=== PATIENT | female | born 1985 | race African-American/Black ===

== ENCOUNTER 2019-02-02 04:20 | Emergency (ER) | payer MEDICAID ==
[~2019-02-02] VITALS: Ht 165.1 cm; Wt 72.6 kg
[2019-02-02] MEDS ORDERED: LORAZEPAM INJ 2 MG/ML VIAL ONE (04:42)
--- NOTE | 2019-02-02 04:50 | NUR ---
BIBRA. TO ER BED 10. AAOX4. HYPERVENTILATION, RAPID BREATHING. ANXIOUS. C/O ANXIETY ATTACK AND NUMBNESS TO FACE AND BOTH HANDS. PT WAS TAUGHT BREATHING EXERCISES AT BEDSIDE TO HELP ALLEVIATE HYPERVENTILATION AND ANXIETY, PT IS COOPERATIVE TO COMPLY. PT DENIES CP. DENIES NVD. MD AT BEDSIDE FOR EVAL. ORDERS RECEIVED , NOTED AND CARRIED OUT.
[2019-02-02] MEDS ORDERED: LORAZEPAM INJ 2 MG/ML VIAL IM ONE (05:00)
--- NOTE | 2019-02-02 06:02 | NUR ---
PT IS IN BED SLEEPING. NAD NOTED
--- NOTE | 2019-02-02 06:43 | NUR ---
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 SPOKE WITH TED AND SHE WILL BE PICKING UP PT AT 8AM
--- NOTE | 2019-02-02 07:50 | NUR ---
PATIENTAWAKE ALERT NON DISTRESS AWAITNG FOR HER SIDTER TO PICK HER UP ,NOTED AMBULATORY SHES IN THE PHONE PRESCRIPTION
--- NOTE | 2019-02-02 08:29 | NUR ---
Called Randal [phone] agrees to pick her up
--- NOTE | 2019-02-02 09:25 | NUR ---
patient awake alert noted able to ambulated she refused to wait in the waiting area ,put her in a wheel chair ,spoke to Randal cramer 2 stated ETA 10 minutes
[2019-02-02 09:43] VITALS: BP 89/123
--- NOTE | 2019-02-02 09:43 | NUR ---
Patient discharged to home in stable condition. Written and verbal after care instructions given. Patient verbalizes understanding of instruction.
== END 2019-02-02 09:43 | disposition home or self-care (01) ==
LOC: ER 04:25
DX: F41.9 Anxiety disorder, unspecified (principal); F32.9 Major depressive disorder, single episode, unspecified; R06.4 Hyperventilation; Z88.8 Allergy status to other drugs, medicaments and biological substances
CPT/HCPCS: 96372; 99284; J2060

== ENCOUNTER 2019-03-01 18:51 | Emergency (ER) | payer MEDICAID ==
[~2019-03-01] VITALS: Ht 165.1 cm; Wt 72.6 kg
[2019-03-01 19:01] VITALS: BP 132/94
[2019-03-01] MEDS ORDERED: LORAZEPAM 1 MG TABLET PO ONE (19:30)
[2019-03-01] MEDS ORDERED: ONDANSETRON HCL 4 MG/5 ML SOLUTION PO ONE (19:30)
[2019-03-01] MEDS ORDERED: KETOROLAC TROMETHAMINE INJ 60 MG/2 ML VIAL IM ONE (19:30)
[2019-03-01] MEDS ORDERED: CYCLOBENZAPRINE 10 MG TABLET PO ONE (19:30)
[2019-03-01] MEDS ORDERED: KETOROLAC TROMETHAMINE INJ 30 MG/ML VIAL ONE (19:34)
[2019-03-01] MEDS ORDERED: LORAZEPAM 1 MG TABLET ONE (19:35)
[2019-03-01] MEDS ORDERED: CYCLOBENZAPRINE 10 MG TABLET ONE (19:35)
[2019-03-01] MEDS ORDERED: ONDANSETRON 4 MG TAB.RAPDIS ONE (19:35)
== END 2019-03-01 21:03 | disposition home or self-care (01) ==
LOC: ER 18:57
DX: F41.9 Anxiety disorder, unspecified (principal); M54.5 Low back pain; F32.9 Major depressive disorder, single episode, unspecified; Z88.8 Allergy status to other drugs, medicaments and biological substances
CPT/HCPCS: 72110; 96372; 99284; J1885; Q0162

== ENCOUNTER 2019-04-01 18:15 | Emergency (ER) | payer MEDICAID ==
[~2019-04-01] VITALS: Ht 165.1 cm; Wt 71.2 kg
[2019-04-01 18:47] VITALS: BP 131/79
--- NOTE | 2019-04-01 19:22 | NUR ---
CALLED PT FOR BED ASSIGNMENT, NO ANSWER.
--- NOTE | 2019-04-01 19:30 | NUR ---
CALLED PT FOR BED ASSIGNMENT, NO ANSWER.
--- NOTE | 2019-04-01 19:34 | NUR ---
CALLED PT FOR BED ASSIGNMENT, NO ANSWER.
== END 2019-04-01 20:39 | disposition left against medical advice (07) ==
LOC: ER 18:17
DX: Z53.21 Procedure and treatment not carried out due to patient leaving prior to being seen by health care provider (principal); R05 Cough; R09.81 Nasal congestion; J02.9 Acute pharyngitis, unspecified; F32.9 Major depressive disorder, single episode, unspecified; F41.9 Anxiety disorder, unspecified

== ENCOUNTER 2019-04-07 03:05 | Emergency (ER) | payer MEDICAID ==
[~2019-04-07] VITALS: Ht 165.1 cm; Wt 70.3 kg
--- NOTE | 2019-04-07 03:53 | NUR ---
PT PRESENTED TO THE ER WITH A C/O PRODUCTIVE COUGH, CONGESTION, DIZZINESS, NAUSEA AND VOMITTING X1 @0200 TODAY. PT STATED THAT THIS STARTED 4 DAYS AGO AND HAS BEEN PROGRESSIVELY GETTING WORSE. PT STATED THAT THE COUGH WOKE HER UP THIS MORNING AT 0200 AND IT WAS SO SEVERE THAT SHE THREW UP.
[2019-04-07] MEDS ORDERED: ONDANSETRON 4 MG TAB.RAPDIS SL ONE (04:00)
[2019-04-07] MEDS ORDERED: ACETAMINOPHEN ES 500 MG TABLET PO ONE (04:00)
[2019-04-07] MEDS ORDERED: GUAIFENESIN/D-METHORPHAN HB 5 ML UDC ONE (04:00)
[2019-04-07] MEDS ORDERED: ACETAMINOPHEN ES 500 MG TABLET ONE (04:00)
[2019-04-07] MEDS ORDERED: GUAIFENESIN/D-METHORPHAN HB 5 ML UDC PO ONE (04:00)
[2019-04-07] MEDS ORDERED: ONDANSETRON 4 MG TAB.RAPDIS ONE (04:01)
--- NOTE | 2019-04-07 04:18 | NUR ---
CXR DONE AT THE BEDSIDE.
--- NOTE | 2019-04-07 04:19 | NUR ---
INFLUENZA SWAB DONE AND SENT TO LAB.
--- NOTE | 2019-04-07 04:49 | NUR ---
PT STATED THAT HER HEADACHE WAS STILL 8/10 WITH NO RELIEF FROM TYLENOL. PT STATED THAT HER NAUSEA WAS GONE AND SHE STOPPED COUGHING. PT REC'D 2 WARM BLANKETS AND A CUP OF WATER.
--- NOTE | 2019-04-07 05:46 | NUR ---
Patient discharged to home in stable condition. Written and verbal after care instructions given. Patient verbalizes understanding of instruction AND RX. PT REC'D AN EXCUSE FOR WORK. PT AMBULATED OUT WITH A STEADY GAIT. VSS.
[2019-04-07 05:48] VITALS: BP 133/81
== END 2019-04-07 05:48 | disposition home or self-care (01) ==
LOC: ER 03:08
DX: J20.8 Acute bronchitis due to other specified organisms (principal); J45.909 Unspecified asthma, uncomplicated; F32.9 Major depressive disorder, single episode, unspecified; F41.9 Anxiety disorder, unspecified; Z88.8 Allergy status to other drugs, medicaments and biological substances
CPT/HCPCS: 71045; 84703; 87804 ×2; 99284; Q0162

== ENCOUNTER 2019-04-07 17:53 | Emergency (ER) | payer MEDICAID ==
[~2019-04-07] VITALS: Ht 165.1 cm; Wt 70.3 kg
--- NOTE | 2019-04-07 18:08 | NUR ---
PT BIB SELF C/O HEADACHE,NAUSEA AFTER TAKING PRESCRIBED MEDS, PT IS AAOX4, NOT IN RESPIRATORY DISTRESS, V/S STABLE, KEPT RESTED AND COMFORTABLE, WILL CONTINUE TO MONITOR.
--- NOTE | 2019-04-07 19:06 | NUR ---
GEOVANNA MARTIN STUDENT LIFE ADVISOR AT BEDSIDE FOR EVAL.
[2019-04-07 19:28] LABS: BASOPHILS # (AUTO) 0.1 /CMM (0.0-0.2); BASOPHILS % (AUTO) 1.2 % (0.0-2.0); EOSINOPHILS % (AUTO) 2.3 % (0.0-6.0); HEMATOCRIT 30 % (33-45); HEMOGLOBIN 9.1 g/dL (11.5-14.8); LYMPHOCYTES # (AUTO) 2.2 /CMM (0.8-4.8); LYMPHOCYTES % (AUTO) 30.8 % (20.0-44.0); MEAN CORPUSCULAR HGB CONC 31 g/dl (31.0-36.0); MEAN CORPUSCULAR VOLUME 59 fL (82-100); MONOCYTES # (AUTO) 0.4 /CMM (0.1-1.30); MONOCYTES % (AUTO) 5.7 % (2.0-12.0); NEUTROPHILS # (AUTO) 4.3 /CMM (1.8-8.9); PLATELET COUNT (AUTO) 267 /CMM (150-450); RED BLOOD CELL COUNT(AUTO) 5.05 MIL/uL (4.0-5.2); WHITE BLOOD COUNT (AUTO) 7.1 K/uL (4.3-11.0)
[2019-04-07] MEDS ORDERED: ONDANSETRON HCL/PF 4 MG/2 ML VIAL ONE (19:29)
[2019-04-07] MEDS ORDERED: HYDROCODONE BIT/HOMATROPINE 5 ML UDC ONE ×2 (19:29→19:58)
[2019-04-07] MEDS ORDERED: HYDROCODONE BIT/HOMATROPINE 5 ML UDC PO ONE ×2 (19:30→20:00)
[2019-04-07] MEDS ORDERED: ONDANSETRON HCL/PF 4 MG/2 ML VIAL IVP ONE (19:30)
[2019-04-07] MEDS ORDERED: IV NS 0.9% 1,000 ML BAG IV ONE (19:30)
[2019-04-07 19:47] LABS: ALBUMIN 4.1 g/dL (3.4-5.0); BILIRUBIN,TOTAL 0.2 mg/dL (0.2-1.0); CALCIUM, SERUM 9.2 mg/dL (8.5-10.1); CREATININE 0.8 mg/dL (0.6-1.3); POTASSIUM 4.1 mmol/L (3.5-5.1); TOTAL PROTEIN, SERUM 8.5 g/dL (6.4-8.2)
--- NOTE | 2019-04-07 20:31 | NUR ---
GEOVANNA AT BEDSIDE FOR RE-EVALUATION
--- NOTE | 2019-04-07 20:44 | NUR ---
IV removed. Catheter intact and site benign. Pressure and 4x4 applied to site. No bleeding noted. Patient discharged to home in stable condition. Written and verbal after care instructions given. Patient verbalizes understanding of instruction. Patient is ambulatory with a steady gait.
[2019-04-07 21:45] VITALS: BP 122/76
== END 2019-04-07 21:45 | disposition home or self-care (01) ==
LOC: ER 17:54
DX: F41.9 Anxiety disorder, unspecified (principal); J40 Bronchitis, not specified as acute or chronic; R11.2 Nausea with vomiting, unspecified; D64.9 Anemia, unspecified; N80.9 Endometriosis, unspecified; F32.9 Major depressive disorder, single episode, unspecified; Z88.8 Allergy status to other drugs, medicaments and biological substances
CPT/HCPCS: 36415; 80048; 80076; 85025; 96361; 96374; 99284; J2405; J7030

== ENCOUNTER 2019-04-10 07:47 | Emergency (ER) | payer MEDICAID ==
[~2019-04-10] VITALS: Ht 165.1 cm; Wt 70.3 kg
--- NOTE | 2019-04-10 07:55 | NUR ---
CAME IN FOR GENERALIZED WEAKNESS, HEADACHE, NAUSEA, COUGH FOR LESS THAN A WEEK, PAT HERE 2DAYS AGO FOR SAME REASON, ON PO ATB Z-PACK. AFEBRILE. TO ER BED 10, HOOKED TOMONITOR, CHANGED TO HOSPITAL GOWN, WARM BLANKET PROVIDED, DR ORR AT BEDSIDE
[2019-04-10] MEDS ORDERED: ONDANSETRON HCL/PF 4 MG/2 ML VIAL ONE (08:14)
[2019-04-10] MEDS ORDERED: diphenhydrAMINE HCL 50 MG/ML VIAL ONE (08:14)
[2019-04-10 08:18] LABS: BASOPHILS # (AUTO) 0.1 /CMM (0.0-0.2); BASOPHILS % (AUTO) 1.1 % (0.0-2.0); EOSINOPHILS % (AUTO) 4.6 % (0.0-6.0); HEMATOCRIT 26 % (33-45); LYMPHOCYTES # (AUTO) 2.1 /CMM (0.8-4.8); LYMPHOCYTES % (AUTO) 38.5 % (20.0-44.0); MEAN CORPUSCULAR HGB CONC 31 g/dl (31.0-36.0); MEAN CORPUSCULAR VOLUME 59 fL (82-100); MONOCYTES # (AUTO) 0.4 /CMM (0.1-1.30); MONOCYTES % (AUTO) 6.9 % (2.0-12.0); NEUTROPHILS # (AUTO) 2.6 /CMM (1.8-8.9); NEUTROPHILS % (AUTO) 48.9 % (43.0-81.0); PLATELET COUNT (AUTO) 199 /CMM (150-450); WHITE BLOOD COUNT (AUTO) 5.4 K/uL (4.3-11.0)
[2019-04-10] MEDS ORDERED: diphenhydrAMINE HCL 50 MG/ML VIAL IV ONE (08:30)
[2019-04-10] MEDS ORDERED: ONDANSETRON HCL/PF - ER 4 MG/2 ML VIAL IV ONE (08:30)
[2019-04-10] MEDS ORDERED: IV NS 0.9% 1,000 ML BAG IV ONE (08:30)
[2019-04-10 08:34] LABS: ALBUMIN 3.8 g/dL (3.4-5.0); BILIRUBIN,TOTAL 0.2 mg/dL (0.2-1.0); CREATININE 0.8 mg/dL (0.6-1.3); POTASSIUM 3.7 mmol/L (3.5-5.1); TOTAL PROTEIN, SERUM 7.6 g/dL (6.4-8.2)
[2019-04-10 09:12] LABS: EOSINOPHILS % (MANUAL) 2 % (0-4); LYMPHOCYTES % (MANUAL) 36 % (16-48); MONOCYTES % (MANUAL) 8 % (0-11.0); NEUTROPHILS % (MANUAL) 54 (42-76)
--- NOTE | 2019-04-10 10:05 | NUR ---
IV removed. Catheter intact and site benign. Pressure and 4x4 applied to site. No bleeding noted.Patient discharged to home in stable condition. Written and verbal after care instructions given. Patient verbalizes understanding of instruction.
[2019-04-10 10:06] VITALS: BP 126/79
== END 2019-04-10 10:06 | disposition home or self-care (01) ==
LOC: ER 07:56
DX: D64.9 Anemia, unspecified (principal); R53.1 Weakness; R42 Dizziness and giddiness; J45.909 Unspecified asthma, uncomplicated; F32.9 Major depressive disorder, single episode, unspecified; F41.9 Anxiety disorder, unspecified; Z88.8 Allergy status to other drugs, medicaments and biological substances
CPT/HCPCS: 36415; 70450; 80048; 80076; 85025; 96361; 96374; 96375; 99284; J1200; J2405; J7030

== ENCOUNTER 2019-04-23 00:22 | Emergency (ER) | payer MEDICAID ==
[~2019-04-23] VITALS: Ht 165.1 cm; Wt 70.3 kg
--- NOTE | 2019-04-23 00:34 | NUR ---
PT [place]. AAOX4. C/O FEELING ANXIOUS. PT STATES SHE RAN OUT OF HER MEDICATION. VSS. NO ACUTE DISTRESS NOTED. PLACED ON MONITOR AND PULSE OX.
[2019-04-23] MEDS ORDERED: LORAZEPAM INJ 2 MG/ML VIAL ONE (01:22)
[2019-04-23] MEDS ORDERED: LORAZEPAM INJ 2 MG/ML VIAL IV ONE (01:30)
--- NOTE | 2019-04-23 01:46 | NUR ---
Patient is resting comfortably in bed. Easily aroused. VSS.
[2019-04-23] MEDS ORDERED: ONDANSETRON HCL/PF 4 MG/2 ML VIAL ONE (02:16)
[2019-04-23] MEDS ORDERED: MECLIZINE HCL 25 MG TABLET ONE (02:16)
[2019-04-23] MEDS ORDERED: MECLIZINE HCL 25 MG TABLET PO ONE (02:30)
[2019-04-23] MEDS ORDERED: IV NS 0.9% 1,000 ML BAG IV ONE (02:30)
[2019-04-23] MEDS ORDERED: ONDANSETRON HCL/PF - ER 4 MG/2 ML VIAL IV ONE (02:30)
[2019-04-23 02:35] LABS: BASOPHILS # (AUTO) 0.2 /CMM (0.0-0.2); BASOPHILS % (AUTO) 2.8 % (0.0-2.0); EOSINOPHILS % (AUTO) 2.6 % (0.0-6.0); HEMATOCRIT 29 % (33-45); HEMOGLOBIN 9.1 g/dL (11.5-14.8); LYMPHOCYTES # (AUTO) 0.4 /CMM (0.8-4.8); LYMPHOCYTES % (AUTO) 7.2 % (20.0-44.0); MEAN CORPUSCULAR HGB CONC 32 g/dl (31.0-36.0); MEAN CORPUSCULAR VOLUME 63 fL (82-100); MONOCYTES # (AUTO) 0.4 /CMM (0.1-1.30); MONOCYTES % (AUTO) 6.2 % (2.0-12.0); NEUTROPHILS # (AUTO) 4.9 /CMM (1.8-8.9); NEUTROPHILS % (AUTO) 81.2 % (43.0-81.0); PLATELET COUNT (AUTO) 400 /CMM (150-450); RED BLOOD CELL COUNT(AUTO) 4.59 MIL/uL (4.0-5.2)
[2019-04-23 02:39] LABS: CALCIUM, SERUM 8.7 mg/dL (8.5-10.1); CREATININE 0.8 mg/dL (0.6-1.3); POTASSIUM 3.7 mmol/L (3.5-5.1)
[2019-04-23 02:45] LABS: ALBUMIN 3.9 g/dL (3.4-5.0); BILIRUBIN,DIRECT 0.1 mg/dL (0.0-0.2); BILIRUBIN,TOTAL 0.2 mg/dL (0.2-1.0); TOTAL PROTEIN, SERUM 7.4 g/dL (6.4-8.2)
--- NOTE | 2019-04-23 03:33 | NUR ---
PT RESTING COMFORTABLY. VSS.
--- NOTE | 2019-04-23 05:59 | NUR ---
IV removed. Catheter intact and site benign. Pressure and 4x4 applied to site. No bleeding noted. Patient discharged to home in stable condition. Written and verbal after care instructions given. Patient verbalizes understanding of instruction. Patient is ambulatory with a steady gait. Instructed not to drive with medications prescribed because they can impair thought process/ cause drowsiness. Pt called friend to pick her up.
[2019-04-23 06:00] VITALS: BP 122/78
== END 2019-04-23 06:01 | disposition home or self-care (01) ==
LOC: ER 00:24
DX: F41.9 Anxiety disorder, unspecified (principal); F32.9 Major depressive disorder, single episode, unspecified; R42 Dizziness and giddiness; R51 Headache; J45.909 Unspecified asthma, uncomplicated; Z88.8 Allergy status to other drugs, medicaments and biological substances
CPT/HCPCS: 36415; 71045; 80048; 80076; 84145; 85025; 87804 ×2; 96361; 96374; 96375; 99284; J2060; J2405; J7030; J8597

== ENCOUNTER 2019-05-04 21:26 | Emergency (ER) | payer MEDICAID ==
[~2019-05-04] VITALS: Ht 165.1 cm; Wt 70.3 kg
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
[2019-05-05] MEDS ORDERED: predniSONE 20 MG TABLET ONE (00:05)
[2019-05-05] MEDS ORDERED: DIAZEPAM 5 MG TABLET ONE (00:05)
[2019-05-05] MEDS ORDERED: predniSONE 50 MG TABLET PO ONE (00:30)
[2019-05-05] MEDS ORDERED: DIAZEPAM 5 MG TABLET PO ONE (00:30)
--- NOTE | 2019-05-05 00:39 | NUR ---
Patient discharged to home in stable condition. Written and verbal after care instructions given. Patient verbalizes understanding of instruction and RX. PT ambulated with steady gait. VSS.
[2019-05-05 00:40] VITALS: BP 126/74
== END 2019-05-05 00:54 | disposition home or self-care (01) ==
LOC: ER 21:29
DX: M54.42 Lumbago with sciatica, left side (principal); F41.0 Panic disorder [episodic paroxysmal anxiety]; F32.9 Major depressive disorder, single episode, unspecified; G89.29 Other chronic pain; J45.909 Unspecified asthma, uncomplicated; Z88.8 Allergy status to other drugs, medicaments and biological substances
CPT/HCPCS: 99283; J7512

== ENCOUNTER 2019-05-23 07:08 | Emergency (ER) | payer MEDICAID ==
[~2019-05-23] VITALS: Ht 165.1 cm; Wt 70.3 kg
[2019-05-23] MEDS ORDERED: LORAZEPAM 1 MG TABLET ONE (07:30)
[2019-05-23] MEDS: LORAZEPAM 1 MG TABLET PO ONE (07:35)
--- NOTE | 2019-05-23 07:45 | NUR ---
patient came in to the er terrie, feels sob, 02 sat 99% on RA. out of ativan. On room air, breathing evenly and unlabored. connected to the monitor and pulse ox. kept comfortable, will continue to monitor accordingly.
[2019-05-23 09:46] VITALS: BP 123/79
--- NOTE | 2019-05-23 09:47 | NUR ---
Patient discharged to home in stable condition. Written and verbal after care instructions given. Patient verbalizes understanding of instruction.
== END 2019-05-23 09:47 | disposition home or self-care (01) ==
LOC: ER 07:11
DX: F41.9 Anxiety disorder, unspecified (principal); Z88.8 Allergy status to other drugs, medicaments and biological substances

== ENCOUNTER 2019-07-03 04:34 | Emergency (ER) | payer MEDICAID ==
[~2019-07-03] VITALS: Ht 165.1 cm; Wt 72.6 kg
--- NOTE | 2019-07-03 04:37 | NUR ---
PT CAME IN C/O MIDSTERNAL CP RADIATING TO BACK X4DAYS. ABD PAIN WITH NAUSEA & DIARRHEA. PT AAOX4, VSS. RR EVEN AND UNLABORED ON RA W/ NAD NOTED. PT CONNECTED TO THE MONITOR AND POX
[2019-07-03] MEDS ORDERED: IV NS 0.9% 1,000 ML BAG IV ONE (05:00)
[2019-07-03] MEDS ORDERED: DICYCLOMINE HCL INJ 20 MG/2 ML AMPUL IM ONE ×2 (05:00→05:22)
[2019-07-03] MEDS ORDERED: DICYCLOMINE HCL 10 MG CAPSULE PO ONE (05:04)
[2019-07-03] MEDS ORDERED: ONDANSETRON HCL/PF 4 MG/2 ML VIAL ONE (05:04)
[2019-07-03] MEDS: ONDANSETRON HCL/PF 4 MG/2 ML VIAL IVP ONE ×2 (05:26→05:39)
[2019-07-03] MEDS ORDERED: MORPHINE SULFATE INJ 2 MG/ML DISP.SYRIN ONE (06:14)
--- NOTE | 2019-07-03 06:23 | NUR ---
PT TOOK LAST MORNING MAGNESIUM CITRATE SHE WAS CONSTIPATED X4 DAYS. DIARRHEA STARTED NIGHT. MADE AWARE.
[2019-07-03] MEDS ORDERED: MORPHINE SULFATE INJ 2 MG/ML DISP.SYRIN IV ONE (06:30)
[2019-07-03 06:49] LABS: BASOPHILS % (AUTO) 0.6 % (0.0-2.0); EOSINOPHILS % (AUTO) 7.3 % (0.0-6.0); HEMATOCRIT 33 % (33-45); LYMPHOCYTES # (AUTO) 2.1 /CMM (0.8-4.8); LYMPHOCYTES % (AUTO) 46.8 % (20.0-44.0); MEAN CORPUSCULAR HGB CONC 34 g/dl (31.0-36.0); MEAN CORPUSCULAR VOLUME 75 fL (82-100); MONOCYTES # (AUTO) 0.3 /CMM (0.1-1.30); MONOCYTES % (AUTO) 6.6 % (2.0-12.0); NEUTROPHILS # (AUTO) 1.8 /CMM (1.8-8.9); NEUTROPHILS % (AUTO) 38.7 % (43.0-81.0); PLATELET COUNT (AUTO) 231 /CMM (150-450); RED BLOOD CELL COUNT(AUTO) 4.38 MIL/uL (4.0-5.2); WHITE BLOOD COUNT (AUTO) 4.5 K/uL (4.3-11.0)
[2019-07-03 06:58] LABS: CALCIUM, SERUM 8.1 mg/dL (8.5-10.1); CREATININE 0.9 mg/dL (0.6-1.3); POTASSIUM 4.1 mmol/L (3.5-5.1)
[2019-07-03 07:04] LABS: ALBUMIN 3.5 g/dL (3.4-5.0); BILIRUBIN,TOTAL 0.1 mg/dL (0.2-1.0); TOTAL PROTEIN, SERUM 6.7 g/dL (6.4-8.2)
--- NOTE | 2019-07-03 07:05 | NUR ---
RECEIVED REPORT FROM NURA PATRICK FOR [facility]. PT IS AAOX4, NOT IN RESPIRATORY DISTRESS, V/S STABLE, KEPT RESTED AND COMFORTABLE, WILL CONTINUE TO MONITOR.
--- NOTE | 2019-07-03 07:10 | NUR ---
PT IS BACK FROM THE CT SCAN. URINAL GIVEN BUT UNABLE TO PROVIDED URINE SPECIMEN THIS TIME.
[2019-07-03 08:47] VITALS: BP 115/66
--- NOTE | 2019-07-03 08:48 | NUR ---
Patient discharged to home in stable condition. Written and verbal after care instructions given. Patient verbalizes understanding of instruction.IV removed. Catheter intact and site benign. Pressure and 4x4 applied to site. No bleeding noted.
== END 2019-07-03 08:48 | disposition home or self-care (01) ==
LOC: ER 04:35
DX: F41.9 Anxiety disorder, unspecified (principal); R10.9 Unspecified abdominal pain; R11.2 Nausea with vomiting, unspecified; Z88.8 Allergy status to other drugs, medicaments and biological substances
CPT/HCPCS: 36415; 74176; 80053; 83690; 85025; 93005; 96361; 96374; 96375; 99285; J2270; J2405; J7030; J0500

== ENCOUNTER 2020-08-07 18:52 | Emergency (ER) | payer MEDICAID ==
[~2020-08-07] VITALS: Ht 167.6 cm; Wt 65.8 kg
--- NOTE | 2020-08-07 19:15 | NUR ---
bibs to the emergency room for c/o "jolting" and movement of her arms and legs during sleep which makes her wake up and sometimes this comes with chest discomfort. pt ambulatory to bed 1ER, was placed on a monitor . VSS. will cont to monitor ,
--- NOTE | 2020-08-07 19:17 | NUR ---
pa at bed side
--- NOTE | 2020-08-07 19:42 | NUR ---
EMT AT [facility] SIDE FOR EKG
[2020-08-07 19:59] LABS: BASOPHILS # (AUTO) 0.1 /CMM (0.0-0.2); BASOPHILS % (AUTO) 1.3 % (0.0-2.0); EOSINOPHILS % (AUTO) 4.7 % (0.0-6.0); HEMATOCRIT 36 % (33-45); HEMOGLOBIN 12.1 g/dL (11.5-14.8); LYMPHOCYTES # (AUTO) 1.9 /CMM (0.8-4.8); LYMPHOCYTES % (AUTO) 39.4 % (20.0-44.0); MEAN CORPUSCULAR HGB CONC 33 g/dl (31.0-36.0); MEAN CORPUSCULAR VOLUME 79 fL (82-100); MONOCYTES # (AUTO) 0.4 /CMM (0.1-1.30); MONOCYTES % (AUTO) 7.4 % (2.0-12.0); NEUTROPHILS # (AUTO) 2.3 /CMM (1.8-8.9); NEUTROPHILS % (AUTO) 47.2 % (43.0-81.0); PLATELET COUNT (AUTO) 249 /CMM (150-450); RED BLOOD CELL COUNT(AUTO) 4.56 MIL/uL (4.0-5.2); WHITE BLOOD COUNT (AUTO) 4.9 K/uL (4.3-11.0)
[2020-08-07 20:08] LABS: CALCIUM, SERUM 9.1 mg/dL (8.5-10.1); CARBON DIOXIDE 29 mmol/L (21-32); CHLORIDE 104 mmol/L (98-107); CREATININE 0.8 mg/dL (0.6-1.3); GLUCOSE 81 mg/dL (74-106); POTASSIUM 4.2 mmol/L (3.5-5.1); SODIUM SERUM 139 mmol/L (136-145); UREA NITROGEN, BLOOD 11 mg/dL (7-18)
[2020-08-07 20:14] LABS: ALANINE AMINOTRANSFERASE 16 U/L (12-78); ALBUMIN 3.7 g/dL (3.4-5.0); ALKALINE PHOSPHATASE 55 U/L (46-116); ASPARTATE AMINOTRANSFERASE 16 U/L (15-37); BILIRUBIN,TOTAL 0.2 mg/dL (0.2-1.0); TOTAL PROTEIN, SERUM 7.2 g/dL (6.4-8.2)
--- NOTE | 2020-08-07 20:48 | NUR ---
PT is medically stable for d/c per md. Patient discharged to home in stable condition. Written and verbal after care instructions given. Patient verbalizes understanding of instruction.
[2020-08-07 20:53] VITALS: BP 128/79
== END 2020-08-07 20:53 | disposition home or self-care (01) ==
LOC: ER 19:00
DX: R07.89 Other chest pain (principal); K21.9 Gastro-esophageal reflux disease without esophagitis; Z72.820 Sleep deprivation; F41.9 Anxiety disorder, unspecified; Z88.8 Allergy status to other drugs, medicaments and biological substances
CPT/HCPCS: 36415; 71045-TC; 80048-TC; 80076-TC; 84484-TC; 84703-TC; 85025-TC